=== PATIENT | male | born 1980 | race Asian ===

== ENCOUNTER 2018-07-18 23:28 | Emergency (ER) | payer OTHER ==
[~2018-07-18] VITALS: Ht 193 cm; Wt 140.6 kg
[2018-07-19 00:07] LABS: PLATELET COUNT 259 K/uL (142-355)
[2018-07-19 00:25] LABS: POTASSIUM 3.6 mmol/L (3.6-5.2); SODIUM 142 mmol/L (136-145)
[2018-07-19 02:06] VITALS: BP 152/98; TEMP 98.5
== END 2018-07-19 02:11 | disposition home or self-care (01) ==
LOC: ED 23:28
PROVIDERS: Internal Medicine
DX: I10 Essential (primary) hypertension (principal); R07.89 Other chest pain; R06.81 Apnea, not elsewhere classified
CPT/HCPCS: 36415; 80053; 81000; 82550; 84484; 85027; 93005; 99284